=== PATIENT | female | born 1960 | race Caucasian/White ===

== ENCOUNTER 2017-11-06 17:07 | Outpatient (CLI) | payer MEDICARE ==
--- NOTE | 2017-11-06 18:32 | RAD ---
THREE VIEWS RIGHT FOOT: Date: 11-06-17 History: Injury to foot last night after a fall. FINDINGS: There is osteopenia and scattered osteoarthritis involving the right foot. There is a transverse nond isplaced fracture involving the base of the right fifth metatarsal. No additional fracture is seen an d there is no evidence of a dislocation. There has been no other interval change when compared to a p rior study on 06-04-14. IMPRESSION: 1. Transverse nondisplaced fracture base right fifth metatarsal. 2. Osteopenia and scattered osteoarthritis right foot. POS: [facility]
== END 2017-11-06 17:08 | disposition home or self-care (01) ==
LOC: SCSRAD 17:07
PROVIDERS: ATTEND Family Medicine
DX: M79.671 Pain in right foot (principal); S92.354A Nondisplaced fracture of fifth metatarsal bone, right foot, initial encounter for closed fracture; M85.871 Other specified disorders of bone density and structure, right ankle and foot; M19.071 Primary osteoarthritis, right ankle and foot

== ENCOUNTER 2019-05-23 14:14 | Outpatient (CLI) | payer MEDICARE ==
--- NOTE | 2019-05-23 15:12 | MMO ---
Bilateral MAMMO Bilat Screen [facility]. CLINICAL HISTORY: Patient is 59 years old and is seen for screening. The patient has no family history of breast cancer. The patient has no personal history of cancer. VIEWS: The views performed were: bilateral craniocaudal with tomosynthesis; bilateral mediolateral oblique with tomosynthesis; left craniocaudal; and right exaggerated craniocaudal. FILMS COMPARED: The present examination has been compared to prior imaging studies performed at [facility] on 04/23/2014 and 05/11/2017. MAMMOGRAM FINDINGS: There are scattered fibroglandular densities. There are stable benign appearing calcifications seen in both breasts. Nodularity is stable. There are no suspicious masses, suspicious calcifications, or new areas of architectural distortion. IMPRESSION: THERE IS NO MAMMOGRAPHIC EVIDENCE OF MALIGNANCY. A ROUTINE FOLLOW-UP MAMMOGRAM IN 1 YEAR IS RECOMMENDED. THE RESULTS OF THIS EXAM WERE SENT TO THE PATIENT. ACR BI-RADS Category 2 - Benign finding MAMMOGRAPHY NOTE: 1. A negative mammogram report should not delay a biopsy if a dominant of clinically suspicious mass is present. 2. Approximately 10% to 15% of breast cancers are not detected by mammography. 3. Adenosis and dense breasts may obscure an underlying neoplasm. Reported by: MATTEO HATFIELD MD Electonically Signed: [id number]
== END 2019-05-23 14:15 | disposition home or self-care (01) ==
LOC: BICMAMMO 14:14
PROVIDERS: ATTEND Family Medicine
DX: Z12.31 Encounter for screening mammogram for malignant neoplasm of breast (principal)
CPT/HCPCS: 77063; 77067

== ENCOUNTER 2019-06-05 15:06 | Outpatient (CLI) | payer MEDICARE ==
--- NOTE | 2019-06-05 18:16 | MRI ---
MRI LEFT KNEE 06/05/19 PROVIDED CLINICAL HISTORY: Left knee pain. FINDINGS: The anterior cruciate ligament, posterior cruciate ligament, medial collateral ligament and lateral c ollateral ligamentous complex demonstrate an intact MR appearance, as does the extensor mechanism. The medial and lateral menisci demonstrate no definite evidence for tear. No focal articular cartilage defect is apparent. There is a moderate knee joint effusion. There is partially visualized fatty infiltration of the medial head of the gastrocnemius muscle. Patsy onal marrow and muscular signal appear otherwise unremarkable. IMPRESSION: 1. No evidence for internal derangement. 2. Moderate knee joint effusion. 3. Fatty infiltration of the medial head of the gastrocnemius muscle, suggesting chronic denerva tion. POS: OFF
== END 2019-06-05 15:07 | disposition home or self-care (01) ==
LOC: SCSMRI 15:06
PROVIDERS: ATTEND Pediatrics Sports Medicine
DX: M25.562 Pain in left knee (principal); M25.462 Effusion, left knee; M62.89 Other specified disorders of muscle

== ENCOUNTER 2024-07-08 13:40 | Outpatient (CLI) | payer MEDICARE | END 2024-07-08 13:41 | disposition home or self-care (01) | LOC: BICMAMMO 13:40 | PROVIDERS: ATTEND Family Medicine | DX: Z12.31 Encounter for screening mammogram for malignant neoplasm of breast (principal); Z78.0 Asymptomatic menopausal state; M85.89 Other specified disorders of bone density and structure, multiple sites | CPT/HCPCS: 77063; 77067; 77080 ==

== ENCOUNTER 2024-08-15 11:16 | Outpatient (CLI) | payer MEDICARE | END 2024-08-15 11:17 | disposition home or self-care (01) | LOC: SCSRAD 11:16 | PROVIDERS: ATTEND Family Medicine | DX: R05.9 Cough, unspecified (principal) | CPT/HCPCS: 71046 ==

== ENCOUNTER 2024-09-02 12:31 | Outpatient (CLI) | payer MEDICARE | END 2024-09-02 12:32 | disposition home or self-care (01) | LOC: SCSRAD 12:31 | PROVIDERS: ATTEND Family Medicine | DX: M25.561 Pain in right knee (principal); M17.11 Unilateral primary osteoarthritis, right knee; M25.761 Osteophyte, right knee; M76.9 Unspecified enthesopathy, lower limb, excluding foot ==